=== PATIENT | male | born 1980 | race African-American/Black ===

== ENCOUNTER 2020-05-30 14:05 | Emergency (ER) | payer OTHER ==
[2020-05-30 14:16] VITALS: BP 127/71
--- NOTE | 2020-05-30 15:09 | ED Physician Documentation ---
PD HPI SKIN - Stated complaint Stated Complaint: HEAD LAC - Chief complaint Chief Complaint: Laceration - History obtained from History obtained from: Patient - Additional information Additional information: Patient comes emergency department complaining of laceration to scalp after hitting his head at work. Patient denies any loss of consciousness. He states that that incident happened this morning, and that his neck felt slightly slower for a little bit, but quickly felt better. Patient noticeable bleeding from the top of his head, but otherwise, states he is feeling well and denies other co mplaints at this time. Review of Systems Ten Systems: 10 systems reviewed and negative Constitutional: reports: Reviewed and negative Eyes: reports: Reviewed and negative Ears: reports: Reviewed and negative Nose: reports: Reviewed and negative Throat: reports: Reviewed and negative Cardiac: reports: Reviewed and negative Respiratory: reports: Reviewed and negative GI: reports: Reviewed and negative : reports: Reviewed and negative Skin: reports: Laceration (s) Musculoskeletal: reports: Reviewed and negative Neurologic: reports: Reviewed and negative Psychiatric: reports: Reviewed and negative Endocrine: reports: Reviewed and negative Immunocompromised: reports: Reviewed and negative PD PAST MEDICAL HISTORY - Past Medical History Past Medical History: No - Past Surgical History Past Surgical History: Yes Ortho: Knee replacement, ACL reconstruction - Allergies Allergies/Adverse Reactions: Allergies Allergy/AdvReac Type Severity Reaction Status Date / Time No Known Drug Allergies Allergy Verified 05/30/20 14:10 - Social History Does the pt smoke?: No Smoking Status: Never smoker Does the pt drink ETOH?: Yes Does the pt have substance abuse?: No - Immunizations Immunizations are current?: Yes PD ED PE NORMAL - Vitals Vital signs reviewed: Yes - General General: Alert and oriented X 3, No acute distress - HEENT HEENT: PERRL, EOMI, Moist mucous membranes, Other (1 cm superficial, incomplete laceration to the anterior scalp at the apex. Skin is still connected for about 2 mm in the middle of the laceration and laceration is not able to be pried apart. No active bleeding. Slight ooze of blood and serous fluid noted. No elevation or bony deformity.) - Neck Neck: Supple, no meningeal sign - Respiratory Respiratory: No respiratory distress - Derm Derm: Normal color, Warm and dry, Other (Scalp lack as noted above) - Extremities Extremities: No deformity - Neuro Neuro: Alert and oriented X 3 - Psych Psych: Normal mood, Normal affect Results - Vitals Vitals: Vital Signs - 24 hr 05/30/20 14:10 Temperature 36.5 C Heart Rate 63 Respiratory 14 Rate Blood Pressure 127/71 O2 Saturation 98 Oxygen O2 Source Room air PD MEDICAL DECISION MAKING - ED course Complexity details: considered differential, d/w patient ED course: The wound was cleaned and explored by myself, and I did advise the patient that at this point in time, his laceration does not appear in need of specific repair. We have discussed wound care at home. Patient states he is up-to-date on tetanus through the . We have discussed the usual indications for return to the emergency department. Departure - Departure Disposition: 01 Home, Self Care Clinical Impression: Scalp laceration Qualifiers: Encounter type: initial encounter Qualified Code(s): S01.01XA - Laceration without foreign body of scalp, initial encounter Condition: Stable Instructions: ED Laceration Small Superf No Sutr Comments: Your laceration is small, and very superficial. As such, we have not done any specific repair. Because it is on your scalp, it is also difficult to bandage. The wound meet moves a little bit overnight but should dry up and begin to scab within 24 hours.
== END 2020-05-30 15:14 | disposition home or self-care (01) ==
LOC: ED 14:05
DX: S01.01XA Laceration without foreign body of scalp, initial encounter (principal); W22.09XA Striking against other stationary object, initial encounter; Y92.59 Other trade areas as the place of occurrence of the external cause; Y99.0 Civilian activity done for income or pay
CPT/HCPCS: 99281; 99282

== ENCOUNTER 2021-01-06 11:10 | Outpatient (CLI) | payer OTHER ==
[2021-01-06 11:53] VITALS: BP 115/75
--- NOTE | 2021-01-06 11:53 | SLEEP CARE CONSULTATION ---
Information from patient questionnaire entered by Umu Funk. I have reviewed and concur with the information entered by Umu Funk. This document represents the service I personally performed and the decisions made by me, Myesha Hernandez ARNP. History of Present Illness Service Date and Time: 01/06/2021 1110 Reason for Visit: New patient Chief Complaint: reports: Insomnia, Unrefreshed sleep, Snoring, Excessive daytime sleepiness, Observed pauses in breathing, Fatigue, Frequent awakenings at night Date of Onset: 4 years plus Usual bedtime: 10 pm Time it takes to fall asleep: 2 + hours Snores at night: Yes Observed to quit breathing while asleep: Yes Sleeps alone due to snoring: No Number of times waking at night: 4 Reasons for waking at night: reports: Choking, Gasping for air, Other (unknown reason) Toss, Turn, or Twitch while sleeping: Yes Recalls having dreams: No Usually gets out of bed at: 6 am Feels refreshed in the morning: No Morning headache: No Sleepy or fatigued during the day: Yes Ever fallen asleep while driving: No (no drowsy driving) Takes day naps: No Dreams during day naps: No Prior sleep studies: No Additional HPI information: I had the pleasure of seeing BING MENDOZA today regarding the possibility of him having a sleep disorder. His current complaints are excessive daytime sleepiness, fatigue, frequent night awakenings, insomnia, observed pauses in breathing, snoring and unrefreshed sleep. He has been problems sleeping, gasping for air, waking himself up often. His states he snores. He wakes up in the morning very tired. He has trouble going back to sleep in middle of night. He has been seen for insomnia because he can take hours to go to sleep and if he awakens at night it can take up to 4 hours to go back to sleep. I reviewed prior chart notes and he was being instructed in ways to improve his insomnia. He was also advised he had many symptoms of sleep apnea and recommended evaluation. - Parasomnia Symptoms Ever been unable to move upon waking from sleep: No Walks in sleep: No Talks in sleep: Yes Ever acted out dreams in sleep: No Ever felt weak in the knees when startled or emotional: No Bothered by creepy, crawly, restless sensations in legs: Yes (any time during the day; can happen in any position) Problems with memory or concentration: Yes (both) Subjective Initial [place] Sleepiness Scale score: 17 (in 2020) Past Medical History Past Medical History: reports: Impotence, Other (Allergies; Glaucoma) Social History The patient's occupation is a Active . Patient is and lives in [place]. Have you smoked in the past 12 months: No Alcohol use: Yes Alcohol amount and frequency: 2 drinks per week Caffeine use: Yes Caffeine amount and frequency: 5 drinks per week Family History Family history of sleep disordered breathing: No Allergies and Home Medications Drug allergies reviewed: Yes (NKDA) Home medication list reviewed: Yes Allergy and home medication list: Glaucoma eye drops, new Cetrizine azelastin nasal spray Cialis, prn Review of Systems Weight gain over past 5 years: 30 Cardiovascular: denies: high blood pressure Gastrointestinal: denies: heartburn Neurological: denies: headaches Psychiatric: denies: anxiety, depression Ear/Nose/Throat: denies: tonsillectomy, wisdom teeth removed Endocrine: denies: thyroid disease Immunologic: reports: allergies to food or environment Physical Exam Blood Pressure: 115/75 Cuff size: wrist Heart Rate: 65 O2 Saturation: 99 Height: 6 ft Weight: 200 lb Body Mass Index: 27.1 BMI Classification: Overweight Neck circumference: 15.5 (inches) Nostrils: patent to airflow Mouth and throat: narrow oropharynx Soft palate: long Hard palate: normal Uvula: normal Uvula visualization: 50% Mallampati Class II Tongue: enlarged in size with teeth gomez on lateral edges Tonsils: 2+ Chin and jaw: normal size and position Neck: normal w/o lymphadenopathy or thyromegaly Heart: regular rate and rhythm Lungs: clear bilaterally Impression and Plan 1. Suspected Obstructive Sleep Apnea-Hypopnea Syndrome, as suggested by a history of loud and irregular snoring, observed cessation of breath while asleep, gasping or choking in sleep, frequent awakening during the night, unrefreshed sleep, cognitive impairment, and excessive daytime sleepiness. Narrow oropharynx and obesity are common predisposing factors for obstructive sleep apnea-hypopnea syndrome. I recommend proceeding to polysomnography to confirm the diagnosis and to assess severity. If the patient has significant sleep disordered breathing, a manual CPAP titration study will also be performed to find the optimal treatment pressure. I informed the patient of what the sleep studies involve and after some discussion, obtained agreement to proceed. The pathophysiology of obstructive sleep apnea-hypopnea syndrome was discussed with the patient and health risks of cardiovascular and cerebrovascular disease if not treated. Risks of drowsy driving discussed in detail and patient advised to avoid long distance driving and to head well puller at the first sign of drowsiness. Patient agreed to plan. * Schedule polysomnography +- manual CPAP titration study and return in 1-2 weeks after the study to discuss result and initiate therapy. * Avoid long distance driving or driving when feeling sleepy. * Avoid alcohol, sedative and muscle relaxant around bedtime. * Attempt to lose weight. * Review instructions provided by trained office staff on how to prepare for the sleep study. * Return for follow-up after sleep study completed. Counseling Topics: Weight loss health impact Visit Type: In Office Time Spent with Patient (minutes): 32 Provider Statement: I spent 100% of the Face to Face Visit with the patient with greater than 50% spent counseling the patient and coordination of care.
== END 2021-01-06 11:11 | disposition home or self-care (01) ==
LOC: SC 11:10
PROVIDERS: ATTEND Nurse Practitioner Family
DX: R06.83 Snoring (principal); R06.81 Apnea, not elsewhere classified; G47.8 Other sleep disorders; R41.89 Other symptoms and signs involving cognitive functions and awareness; G47.10 Hypersomnia, unspecified; E66.3 Overweight; Z68.27 Body mass index [BMI] 27.0-27.9, adult
CPT/HCPCS: 99203; 99212

== ENCOUNTER 2021-01-11 08:53 | Outpatient (CLI) | payer OTHER | END 2021-01-11 08:54 | disposition home or self-care (01) | LOC: SC 08:53 | PROVIDERS: ATTEND Nurse Practitioner Family | DX: G47.33 Obstructive sleep apnea (adult) (pediatric) (principal); R09.02 Hypoxemia; R00.0 Tachycardia, unspecified | CPT/HCPCS: 95806 ==

== ENCOUNTER 2021-01-17 14:52 | Outpatient (CLI) | payer OTHER ==
--- NOTE | 2021-01-17 15:35 | SLEEP CARE CONSULTATION ---
Information from patient questionnaire entered by Kailash Shook. I have reviewed and concur with the information entered by Kailash Shook. This document represents the service I personally performed and the decisions made by me, Myesha Hernandez ARNP. History of Present Illness Service Date and Time: 01/17/2021 145 Initial [place] Sleepiness Scale score: 17 (in 2020) Current [place] Sleepiness Scale score: 15 Additional HPI information: BING MENDOZA returns for follow up and results of the recently performed home sleep study. I explained the pathophysiology behind obstructive sleep apnea. We then spent quite a bit of time discussing different treatment options. For mild obstructive sleep apnea, surgery and oral appliance are alternatives to nasal CPAP therapy but in moderate or severe cases, nasal CPAP is the most effective and reliable treatment. I reviewed the impact of weight changes on sleep apnea and strongly recommended losing weight. After some discussion, the patient opted to go with the nasal CPAP therapy. Nasal autoCPAP set at 4-15 cmH20 will be ordered with rationale explained. A manual titration study will be ordered if unable to find optimal pressure with office adjustments. I explained how CPAP machine works with sample devices Respirhulu Dreamstation and Epicrisis [id number] and what to expect when using the machine. Using CPAP every night in order to get used to it was emphasized. Patient advised to put CPAP mask on before getting into bed so as not to fall asleep without CPAP. To assist acclimation to CPAP use, it could also be used for a short time during day while reading or watching TV. The patient was instructed to call the CPAP supplier to discuss any mechanical problem that may occur. If the mask given is uncomfortable or is difficult to keep on through the night even with adjustment, contact the CPAP supplier as many will replace with another mask style if notified before 30 days. If snoring or perceives is not getting enough air or too much air from the machine, notify this office. [facility] patient education PAP tips reviewed and given to patient. Patient counseled not drink alcohol less than 4 hours before bedtime as it can increase snoring and apnea. Patient was cautioned about risks of drowsy driving until sleepiness symptoms resolve. Sleep Study - Results Type of Sleep Study: Home sleep study Prior sleep studies: No Polysomnography/Home Sleep Study results: Physician Impression: The quality of the study is fair due to partial loss of po signal. The length of the study is adequate (> 240 minutes). Please also see the tabulated and graphic data. 1. Obstructive Sleep Apnea-Hypopnea (ICD-10 G47.33), mild, with an AHI of 9.8/hr and sirisha SaO2 of 78%. During the study, the patient had 21 apneas (21 obstructive, 0 central, 0 mixed) and 30 hypopneas. The longest episode lasted 72.5 seconds. The patient did not sleep supine during this study. (supine AHI was 0, and non-supine, 9.75). 2. Hypoxemia (ICD-10 R09.02), moderate, with the lowest oxygen saturation of 78 % and 7.1 minutes with SaO2 under 90%. Baseline oxygen saturation was normal (Average oxygen saturation was 93%). 3. Tachycardia, with maximum recoded heart rate of 246 beats per minute, most likely an artifact. Allergies and Home Medications Home medication list reviewed: Yes (no changes) Review of Systems Review of systems same as previous: Yes (no changes) Physical Exam Heart Rate: 71 O2 Saturation: 98 Height: 6 ft Weight: 200 lb Body Mass Index: 27.1 BMI Classification: Overweight Impression and Plan 1. Obstructive Sleep Apnea-Hypopnea Syndrome, mild, with lowest oxygen saturation of 78%. Obviously this is the cause of the patients symptoms of unrefreshed sleep, and excessive daytime sleepiness. Positive pressure therapy could benefit his overall health and reduce risks for cardiovascular and cerebrovascular adverse events. He has a history of impotence. As mentioned above, the patient will be started on nasal autoCPAP therapy with pressure set at 4-15 cmH2O. A manual titration study will be completed if unable to find optimal treatment pressure with office adjustments. Compliance guidelines also reviewed. A copy of compliance guidelines will be given for reference at check out. * Nasal auto CPAP therapy, pressure at 4-15 cm H2O. * Attempt to lose weight. * Avoid alcohol consumption near bedtime. * Avoid supine sleep until using CPAP. * The patient is again cautioned about driving until sleepiness completely resolves. * Return one month after CPAP obtained. I will assess response to therapy and compliance at that time. Counseling Topics: Weight loss health impact Visit Type: In Office Time Spent with Patient (minutes): 18 Provider Statement: I spent 100% of the Face to Face Visit with the patient with greater than 50% spent counseling the patient and coordination of care.
== END 2021-01-17 14:53 | disposition home or self-care (01) ==
LOC: SC 14:52
PROVIDERS: ATTEND Nurse Practitioner Family
DX: G47.33 Obstructive sleep apnea (adult) (pediatric) (principal); R09.02 Hypoxemia; R00.0 Tachycardia, unspecified
CPT/HCPCS: 99212